=== PATIENT | female | born 1955 | race Two or more races ===

== ENCOUNTER 2016-11-11 13:18 | Emergency (ER) | payer MEDICAID ==
--- NOTE | 2016-11-11 14:09 | Diagnostic Imaging Report ---
CHEST X-RAY: AP view INDICATION: Cough COMPARISON: None FINDINGS: There is no focal consolidation or pleural effusions The heart is normal in size. Degenerative changes of the spine are noted. IMPRESSION: No focal consolidation identified.
[2016-11-11 14:14] LABS: % BASOPHILS 0.7 % (0.0-2.0); % EOSINOPHILS 4.2 % (0.0-5.0); % LYMPHOCYTES 26.7 % (20.0-50.0); % NEUTROPHILS 58.4 % (40.0-80.0); HEMATOCRIT 40.2 % (35.0-45.0); HEMOGLOBIN 13.5 gm/dL (11.7-15.5); MEAN CELL VOLUME 83.4 fl (81-100); MEAN CORPUSCULAR HEMOGLOBIN 28.1 pg (27.0-31.0); MEAN CORPUSCULAR HGB CONC 33.7 pg (28.0-36.0); MEAN PLATELET VOLUME 8.8 fl; NEUTROPHILE ABSOLUTE 4.9 Th/cmm (1.8-8.0); PLATELET COUNT 212 Th/cmm (150-400); RED BLOOD COUNT 4.81 Mil/cmm (3.80-5.10); WHITE BLOOD COUNT 8.6 Th/cmm (4.8-10.8)
--- NOTE | 2016-11-11 14:17 | ED Physician Chart ---
History of Present Illness - General Chief Complaint: Cough Stated Complaint: FEVER, COUGHING, BODY PAIN Time Seen by Provider: 11/11/16 14:05 Exam Limitations: No Limitations - History of Present Illness Timing/Duration: yesterday Cough Quality/Degree: moderate Possible Cause: illness exposure (SON AND DAUGHTER BOTH HAVE THE SAME COUGH) Modifying Factors: coughing Associated Symptoms: cough, fever/chills, shortness of breath Allergies/Adverse Reactions: Allergies No Known Allergies Allergy (Verified 11/11/16 13:42) Home Medications: Ambulatory Orders Nyquil 1 tsp PO PRN PRN 11/11/16 Past History - Past Medical History Medical History: Bronchitis, Diabetes Surgical History: Other (1 , BREAST SURGERY) LMP (females 10-50): Unknown - Social History Smoking Status: Current every day smoker Hx Alcohol Use: No Hx Drug Use: No Review of Systems - Review of Systems Constitutional: Reports: Chills, Fever EENTM: Reports: Nose congestion, Throat pain Respiratory: Reports: Cough Cardiology: Reports: No symptoms reported Gastrointestinal/Abdominal: Reports: No symptoms reported Genitourinary: Reports: No Symptoms Reported Musculoskeletal: Reports: Muscle Pain Skin: Reports: No Symptoms Reported Neurological: Reports: No Symptoms Reported Hematologic/Lymphatic: Reports: No Symptoms Reported Immunological/Allergic: Reports: No Symptoms Reported All Other Systems: Reviewed and Negative Physical Exam - Physical Exam General Appearance: WD/WN, no apparent distress ENT Exam: nasal congestion Respiratory: chest non-tender, rhonchi, wheezing Cardiovascular/Chest: normal peripheral pulses Gastrointestinal/Abdominal: Normal bowel sounds, Non tender Extremity: normal range of motion, non-tender Neurologic: ward assistant II-XII nml as tested, no motor/sensory deficits, alert, normal mood/affect, oriented x 3, abnormal ward assistant II-XII Skin Exam: normal color Lymphatic: no adenopathy Departure - Departure Time of Disposition: 15:22 Disposition: PT DISCHARGED HOME Discharge Problem: BRONCHITIS, URINARY TRACT INFECTION Condition: Improved Home Medications: Ambulatory Orders Nyquil 1 tsp PO PRN PRN 11/11/16 ED Discharge Plan - Patient Disposition Admit/Discharge/Transfer: PT DISCHARGED HOME Condition at Disposition: Improved
[2016-11-11 14:18] LABS: ALB/GLOB RATIO 1.1 (1.0-1.8); ALKALINE PHOSPHATASE 73 U/L (34-104); ANION GAP 10.2 (7.0-16.0); BILIRUBIN,TOTAL 0.4 mg/dL (0.3-1.0); BUN - UREA NITROGEN 12 mg/dL (7-25); CALCIUM SERUM 9.7 mg/dL (8.6-10.3); CHLORIDE 102 mEq/L (98-107); CREATININE - SERUM 0.8 mg/dL (0.6-1.2); GLUCOSE 91 mg/dL (70-105); POTASSIUM SERUM 4.2 mEq/L (3.5-5.1); SGOT 20 U/L (13-39); SGPT/ALT 17 U/L (7-52); SODIUM SERUM 134 mEq/L (136-145)
[2016-11-11 15:05] LABS: URINE BILIRUBIN NEGATIVE (NEGATIVE); URINE BLOOD MODERATE (NEGATIVE); URINE COLOR YELLOW; URINE GLUCOSE (UA) NEGATIVE (NEGATIVE); URINE KETONE NEGATIVE (NEGATIVE); URINE PROTEIN NEGATIVE (NEGATIVE); URINE UROBILINOGEN 0.2 E.U./dL (0.2 - 1.0)
[2016-11-11 15:06] LABS: URINE BACTERIA 1+ /hpf (NONE SEEN); URINE EPITHELIAL CELLS FEW /lpf (FEW)
== END 2016-11-11 15:39 | disposition home or self-care (01) ==
LOC: ER 13:18
DX: J40 Bronchitis, not specified as acute or chronic (principal); N39.0 Urinary tract infection, site not specified; E11.9 Type 2 diabetes mellitus without complications; F17.210 Nicotine dependence, cigarettes, uncomplicated
CPT/HCPCS: 99285; 96372 ×2; 71010; 84484; 36415; 84443; 85025; 87086; 81001; 80053; 87040 ×2; J0696; J2930

== ENCOUNTER 2017-05-31 08:34 | Emergency (ER) | payer MEDICAID ==
--- NOTE | 2017-05-31 09:09 | ED Physician Chart ---
ED Chief Complaint/HPI - Patient Information Date Seen:: 05/31/17 Time Seen:: 09:01 Chief Complaint:: Fever, sore throat History of Present Illness:: 61 yo female developed fever and sore throat since the night before. She felt nausea and vomited once at ER. Her temp was 103.4 and she felt chills and appeared to be in distress. Allergies:: Allergies Allergy/AdvReac Type Severity Reaction Status Date / Time No Known Allergies Allergy Verified 11/11/16 13:42 Vitals:: Vital Signs - 8 hr 05/31/17 08:48 Temp 103.4 F HR 104 RR 16 BP 132/82 O2 Sat % 97 ED Review of Systems - Review of Systems General/Constitutional: Fever, No chills Skin: No skin lesions Head: Headache Eyes: No loss of vision ENT: Sore throat Neck: No neck pain Cardio Vascular: No chest pain Pulmonary: No SOB GI: Nausea, No vomiting Musculoskeletal: No bone or joint pain Neurological: No focal symptoms ED Past Medical History - Past Medical History Past Medical History: No significant medical hx Social History: Smoker, No Alcohol, No Drug Use Surgical History: other (abdominal plasty) Family Medical History - Family Member Mother Living Status: Other Medical History: ID ED Physical Exam - Physical Examination General/Constitutional: Awake, Alert Head: Atraumatic Eyes: PERRL, EOMI Other ENMT comments:: Tonsilar purulent exudate Neck: No nuchal rigidity Respiratory: Clear to Auscultation, No Wheeze/Rhonchi/Rales Cardio Vascular: RRR, No murmur, gallop, rubs, NL S1 S2 GI: No tenderness/rebounding/guarding Extremities: normal strength in all extremities Neuro/Psych: No focal deficits ED Assessment - Assessment General Assessment: URI Critical Care Time: 30 min Excludes all billable procedures: Yes This condition life threatening/high prob of deterioration: No Assessment/Comments:: CBC, CMP, UA, Rapid strep test Zofran NS 1L bolus x 2 IV Ampicillin IV Tylenol Lozenge D/c home Amoxicillin 500mg Bid F/u PCP or return to ER if symptoms persist or worsen ED Septic Shock - . Is Septic Shock (SBP<90, OR Lactate>4 mmol\L) present?: No - <6hrs of presentation: Vital Signs: Vital Signs - 8 hr 05/31/17 08:48 Temp 103.4 F HR 104 RR 16 BP 132/82 O2 Sat % 97 ED Reassessment (Disposition) - Reassessment Reassessment Condition:: Improved - Aftercare/Follow up Instructions Aftercare/Follow-Up Instructions:: Counseled pt regarding lab results/diagnosis & need follow up, Refer to Discharge Instructions - Patient Disposition Discharge/Transfer:: Home ED Discharge Plan - Patient Disposition Admit/Discharge/Transfer: PT DISCHARGED HOME Condition at Disposition: Improved Prescriptions: Amoxicillin [Amoxil] 500 mg PO BID #20 cap Instructions: Strep Throat, [id number] Forms: Work Release Form
[2017-05-31] MEDS ORDERED: Sodium Chloride 0.9% 1,000 ML IV ONE ×2 (09:20→10:17)
[2017-05-31] MEDS ORDERED: Ampicillin 1 GM in Sodium Chloride 0.9% 50 ML IV ONE (09:20)
[2017-05-31 09:32] LABS: BASOPHILE ABSOLUTE 0.1 Th/cumm (0-0.2); HEMATOCRIT 43.7 % (41.0-60); HEMOGLOBIN 14.8 gm/dL (12-16); MANUAL DIFF REQUIRED? YES; MEAN CORPUSCULAR HEMOGLOBIN 28.9 pg (27.0-31.0); MEAN PLATELET VOLUME 8.1 fl; MONOCYTE ABSOLUTE 0.7 Th/cmm (0.3-1.0); NEUTROPHILE ABSOLUTE 17.9 Th/cmm (1.8-8.0); RED BLOOD COUNT 5.14 Mil/cmm (3.80-5.10); RED CELL DISTRIBUTION WIDTH 12.5 % (11.5-20.0)
[2017-05-31 09:33] LABS: ALB/GLOB RATIO 1.2 (1.0-1.8); ALBUMIN 4.7 gm/dL (3.7-5.3); ALKALINE PHOSPHATASE 86 U/L (34-104); ANION GAP 14.1 (7.0-16.0); BILIRUBIN,TOTAL 0.6 mg/dL (0.3-1.0); BUN - UREA NITROGEN 13 mg/dL (7-25); CALCIUM SERUM 9.5 mg/dL (8.6-10.3); CARBON DIOXIDE 22.8 mEq/L (21.0-31.0); CHLORIDE 101 mEq/L (98-107); GFR AFRICAN-AMERICAN > 60.0 ml/min (>90); GFR NON AFRICAN-AMERICAN > 60.0 ml/min; GLUCOSE 111 mg/dL (70-105); POTASSIUM SERUM 3.9 mEq/L (3.5-5.1); SGOT 21 U/L (13-39); SGPT/ALT 21 U/L (7-52); SODIUM SERUM 134 mEq/L (136-145); TOTAL PROTEIN,SERUM 8.6 gm/dL (6.0-8.3)
[2017-05-31 09:41] LABS: PLATELET COUNT 276 Th/cmm (150-400); WHITE BLOOD COUNT 20.7 Th/cmm (4.8-10.8)
[2017-05-31 10:16] LABS: BAND NEUTROPHILE 8 % (0-10); BASOPHIL 1 % (0-3); LYMPHOCYTE 11 % (20-50); MONOCYTE 2 % (2-10); NEUTROPHILS 78 % (40-80); PLATELET ESTIMATE ADEQUATE (NORMAL); TOTAL CELLS COUNTED 100
--- NOTE | 2017-05-31 11:03 | Diagnostic Imaging Report ---
Portable chest x-ray Time: 1009 History: : Fever Allowing for portable technique the heart size is normal. No focal pulmonary parenchymal processes. No hilar or mediastinal abnormalities. Impression: No acute abnormalities.
== END 2017-05-31 13:20 | disposition home or self-care (01) ==
LOC: ER 08:34
DX: J02.9 Acute pharyngitis, unspecified (principal); R50.9 Fever, unspecified; R11.2 Nausea with vomiting, unspecified; F17.200 Nicotine dependence, unspecified, uncomplicated
CPT/HCPCS: 99285; 96365; 96375; 93005; 71010; 36415; 83605 ×2; 87081; 85007; 85027; 80053; 87040; J2405; J0290; J7030; Z7502; Z7610